=== PATIENT | female | born 1965 | race Hispanic/Latino ===

== ENCOUNTER 2018-04-15 10:32 | Inpatient (IN) | payer OTHER ==
--- NOTE | 2018-04-15 10:43 | ED PDOC ---
Psych Transfer Clearance - Clearance Statement Clearance Statement: Reviewed vital signs, lab results and transfer papers. Patient clinically stable for psychiatric admission.
[2018-04-15] MEDS ORDERED: Magnesium Hydroxide Susp 30 ml UD PO PRN (12:47)
[2018-04-15] MEDS ORDERED: Alum-Mag Hydrox-Simethicone Susp (30 mL) PO PRN (12:47)
[2018-04-15] MEDS ORDERED: DiphenhydrAMINE 50 mg/ml Inj IM PRN (12:47)
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
--- NOTE | 2018-04-15 13:39 | CP.PCM.CON ---
History of Present Illness - History of Present Illness History of Present Illness: 52 yo female with history of Bipolar DO admitted to psyche unit because of disorganized behaviour and expressing suicidal ideation. Review of Systems - Review of Systems All systems: reviewed and no additional remarkable complaints except (aside from those mentioned above, 12 point system review were negative by me) Past Patient History - Tetanus Immunizations Tetanus Immunization: Unknown - Past Social History Smoking Status: Never Smoked Chewing Tobacco Use: No Cigar Use: No Alcohol: None Drugs: Cannabis Home Situation {Lives}: With Family Meds Allergies/Adverse Reactions: Allergies Allergy/AdvReac Type Severity Reaction Status Date / Time No Known Allergies Allergy Verified 04/15/18 10:45 - Medications Medications: Current Medications Acetaminophen (Tylenol 325mg Tab) 650 mg PO Q4 PRN PRN Reason: Pain, moderate (4-7) Al Hydrox/Mg Hydrox/Simethicone (Maalox Plus 30 Ml) 30 ml PO Q4 PRN PRN Reason: Dyspepsia Benztropine Mesylate (Cogentin) 1 mg PO HS AVNI Diphenhydramine HCl (Benadryl) 50 mg IM Q6 PRN PRN Reason: Extrapyramidal S/S Unable PO Diphenhydramine HCl (Benadryl) 50 mg PO Q6 PRN PRN Reason: Extrapyramidal Symptoms Haloperidol (Haldol) 5 mg PO Q4 PRN PRN Reason: Agitation Haloperidol Lactate (Haldol) 5 mg IM Q4 PRN PRN Reason: Agitation, Unable to Take PO Ibuprofen (Motrin Tab) 400 mg PO Q6 PRN PRN Reason: muscle ache Lorazepam (Ativan) 2 mg IM Q4 PRN PRN Reason: Anxiety/Agitation,Unable PO Lorazepam (Ativan) 1 mg PO Q8 PRN PRN Reason: Anxiety/Agitation Magnesium Hydroxide (Milk Of Magnesia) 30 ml PO HS PRN PRN Reason: Constipation Oxcarbazepine (Trileptal) 300 mg PO BID AVNI Prazosin HCl (Minipress) 1 mg PO HS AVNI Risperidone (Risperdal M-Tab) 2 mg PO HS AVNI Trazodone HCl (Desyrel) 100 mg PO HS PRN PRN Reason: Insomnia Physical Exam - Constitutional Appears: No Acute Distress - Head Exam Head Exam: ATRAUMATIC - Eye Exam Eye Exam: absent: Scleral icterus - ENT Exam ENT Exam: Mucous Membranes Moist - Neck Exam Neck exam: Negative for: Meningismus - Respiratory Exam Respiratory Exam: absent: Rales, Rhonchi, Wheezes, Respiratory Distress - Cardiovascular Exam Cardiovascular Exam: REGULAR RHYTHM, +S1, +S2 - GI/Abdominal Exam GI & Abdominal Exam: Soft. absent: Tenderness - Rectal Exam Rectal Exam: Deferred - Extremities Exam Extremities exam: Negative for: pedal edema - Neurological Exam Neurological exam: Alert, Oriented x3 - Psychiatric Exam Psychiatric exam: Normal Affect - Skin Skin Exam: Dry, Intact Assessment & Plan (1) Disorganized behavior Status: Acute Comment: psyche is managing
[2018-04-15 15:39] VITALS: RESP 18
[2018-04-15] MEDS ORDERED: Risperidone M TAB 2 MG PO SCH (22:00)
[2018-04-16 09:13] LABS: T4 9.27 ug/dl (5.5-11.0)
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
[2018-04-16] MEDS ORDERED: Risperidone M tab 1 MG PO SCH (22:00)
[2018-04-17] MEDS ORDERED: Sodium Chloride 0.9% 1,000 ML IV SCH (00:15)
--- NOTE | 2018-04-17 00:50 | PCM.RRT ---
<Vanessa Garcia - Last Filed: 04/17/18 00:58> ENTEROSTOMAL THERAPY NURSE Nurse Assessment - Situation ENTEROSTOMAL THERAPY NURSE Reason for Call: Hypotension - IV IV Inserted during ENTEROSTOMAL THERAPY NURSE?: Yes IV Fluids Initiated During ENTEROSTOMAL THERAPY NURSE?: Yes 1L NS - Respiratory Oxygen Delivery Method: Room Air I.Reason for ENTEROSTOMAL THERAPY NURSE - A) Acute Change in Patient: (Select all that apply): Staff member or family is worried about patient Subjective: ENTEROSTOMAL THERAPY NURSE called: 11:25 pm ENTEROSTOMAL THERAPY NURSE arrival: 11:26 pm ENTEROSTOMAL THERAPY NURSE called by: RN ENTEROSTOMAL THERAPY NURSE called for: hypotension, vomiting (x1) Initial ENTEROSTOMAL THERAPY NURSE Vitals: BP 81/50 ENTEROSTOMAL THERAPY NURSE called by nurse for hypotension/near-syncopal episode and 1 episode of vomiting for 52-year-old female with PMH of Bipolar I disorder, PTSD and cannabis use on day 2 of admission. Upon arrival patient was awake, A&O x3, and sitting in chair comfortably. NBNB vomit was noted on gown. She denies headache, change in vision, dizziness, nausea, chest pain and SOB. 2 hours prior to ENTEROSTOMAL THERAPY NURSE she was given Minipres 1mg, Respiridone 3mg, Cipro 500 mg and Prasozin 1mg. Prior to her near-syncopal episode she was very anxious as she was speaking with someone about potential discharge, began to feel nausous and noticed an increase in perspiration. No LOC, symptoms self-resolved after vomiting. As per nurse, BP at time of near-syncopal episode was 46/14. Patient was given 1L NS bolus but was required to be transferred to geriatric psych as per protocol for IV use. BP returned to WNL, as per patient baseline is hypotensive. PE: Gen: no acute distress Neuro: A&O x3 Skin: no rash, normal color, warm and dry Resp: no resp distress End Vitals: BP 96/56 ENTEROSTOMAL THERAPY NURSE Team: Dr Yeboah, Dr Multani, Dr Garcia - Constitutional Appears: Non-toxic, Unkempt - Head Head Exam: NORMAL INSPECTION - Eyes Eye Exam: Normal appearance - Respiratory Exam Respiratory Exam: absent: Respiratory Distress - GI/Abdominal Exam GI & Abdominal Exam: absent: Tenderness - Neurological Exam Neurological Exam: Alert, Awake, Oriented x3 - Extremities Exam Extremities Exam: Normal Inspection <Hany Yeboah - Last Filed: 04/17/18 03:24> Attending/Attestation - Attestation I have personally seen and examined this patient.: Yes I have fully participated in the care of the patient.: Yes I have reviewed all pertinent clinical information, including history, physical exam and plan: Yes Notes (Text): 04/17/18 03:18 I saw, examined and discussed this patient with Dr Garcia. I agree with the assessment and plan. This was a rapid Response team (ENTEROSTOMAL THERAPY NURSE) call after the patient developed vomiting with lightheadedness with fall in blood pressure to 46/14mmHg She said that she did not loose consciousness. On lying the blood pressure increased to 96/55mmHg The Impression is a Vasovagal Presyncope episode. One Liter of Normal was given IV Hany Yeboah MD
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
[2018-04-17 10:58] VITALS: BP 124/68; PULSE 100; TEMP 97.2
== END 2018-04-17 13:00 | disposition left against medical advice (07) | DRG 753 ==
LOC: H.ER 10:32 → H.ERHOLD 10:41 → H.PSYCH 11:29 → H.STEP 04-16 23:58 → H.PSYCH 04-17 06:48
PROVIDERS: ADMIT Psychiatry & Neurology Psychiatry; ATTEND Psychiatry & Neurology Psychiatry
PROC: GZ51ZZZ Individual Psychotherapy, Behavioral (ICD-10-PCS; principal; 2018-04-15)
DX: F31.64 Bipolar disorder, current episode mixed, severe, with psychotic features (principal); I95.9 Hypotension, unspecified; R45.851 Suicidal ideations; Z91.14 Patient's other noncompliance with medication regimen; N39.0 Urinary tract infection, site not specified; F43.10 Post-traumatic stress disorder, unspecified; Z91.19 Patient's noncompliance with other medical treatment and regimen; F10.10 Alcohol abuse, uncomplicated; F12.10 Cannabis abuse, uncomplicated; R55 Syncope and collapse